=== PATIENT | female | born 1990 ===

== ENCOUNTER → 2018-10-06 21:07 | Outpatient (ROUT) | payer OTHER, SELFPAY ==
[2018-10-06 22:28] LABS: Alanine Aminotransferase 26 IU/L (9-52); Alkaline Phosphatase 44 U/L (38-126); Aspartate Aminotransferase 22 IU/L (14-36)
== END ==
PROVIDERS: Visit Provider Family Medicine
DX: A15.9 Respiratory tuberculosis unspecified (principal)
CPT/HCPCS: 36415; 84075; 84450; 84460